=== PATIENT | male | born 1965 | race Caucasian/White ===

== ENCOUNTER → 2019-09-27 10:51 | Outpatient (CLI) | payer BC, SELFPAY ==
--- NOTE | ~2019-09-27 | CT_ITS ---
EXAMINATION: CT abdomen pelvis w con INDICATION: Left lower quadrant pain TECHNIQUE: Computed tomographic images of the abdomen and pelvis were obtained after the administrati on of 100 cc of Omnipaque 350 intravenous contrast. The dose-length product (DLP) was 1088.48 mGy-cm. Automated exposure control and iterative reconstruction technique were employed. COMPARISON: None available FINDINGS: The lung bases are clear. The heart size is normal. Low-attenuation lesions of the right he patic lobe measuring up to 1.3 cm are consistent with cysts or hemangiomas. The spleen, pancreas, gal lbladder, and adrenal glands are normal. The kidneys are unremarkable. There is calcified atheroscler osis of the aorta. No pathologically enlarged abdominal or pelvic lymph nodes are identified. There i s no free intraperitoneal gas or evidence of bowel obstruction. The appendix is normal. There are frederic ateral L5 pars defects with grade 1 anterolisthesis of L5 on S1. IMPRESSION: 1. No CT correlate for the patient's symptoms. Reviewed, dictated and finalized at location B.
[2019-09-27 11:13] LABS: Estimated Glomerular Filt Rate > 60
== END ==
PROVIDERS: Visit Provider Family Medicine
DX: R10.32 Left lower quadrant pain (principal)
CPT/HCPCS: 36415; 74177; Q9967

== ENCOUNTER 2020-12-25 03:58 | Day surgery (SDC) | payer BC, SELFPAY ==
[2020-12-07 13:51] VITALS: BMI 34.3
[2020-12-25 09:45] VITALS: BP 140/92; PULSE 75; RESP 20; TEMP 36.7; O2SAT 97; BMI 33.5
[2020-12-25] MEDS: LACTATED RINGERS 1,000 ML 150 ML IV CONT (09:57)
--- NOTE | 2020-12-25 09:59 | P.CONGI_ITS ---
Assessment and Plan Assessment and plan (1) Change in bowel habit: Code(s): R19.4 - Change in bowel habit Status: Acute Assessment and Plan: Patient reports an alteration in his bowel habits with narrowed ribbon like stools. Plan is for colonoscopy to evaluate more thoroughly. Fiber in his diet is suggested as this may represent irritable bowel syndrome. Endoscopy will help exclude any organic disease. GI Consult Note Consult date/time: 12/25/20 09:59 HPI: Joe Lee Jr. is a 55 year old male Presents for screening colonoscopy. Patient had a several year history of narrowed ribbon like stools. Denies abdominal pain. He has had no bleeding. Colonoscopy several years ago was unremarkable. He presents today for evaluation because of change in bowel habits with narrowed stools. Review of Systems Review of Systems: All systems reviewed & are unremarkable except as noted in HPI and below PMFSH Past Medical History Medical History (Updated 12/25/20 @ 10:00 by Tano Leahy MD) Anxiety Diastolic dysfunction Dyslipidemia CORY (obstructive sleep apnea) Family History Family History (System 07/28/20 @ 11:20 by Karsten Haines) Mother Family history of malignant neoplasm of breast in first degr ee relative, Onset Age: 50 Father , aneurysm Aneurysm Mother Breast cancer Social History Social History (System 07/28/20 @ 11:20 by Karsten Haines) Smoking status: Never smoker Alcohol intake: never Substance use: never Substance use type: does not use Living arrangements: with family Spiritual care concerns: No Meds Home Medications and Allergies Home Medications Medication Instructions Recorded Confirmed Type diltiazem HCl 120 mg 120 mg PO DAILY 05/28/19 12/07/20 History capsule,extended release 24 hr telmisartan 40 1 tablet PO DAILY 05/28/19 12/07/20 History mg-hydrochlorothiazide 12.5 mg tablet diclofenac sodium 75 mg PO DAILY 12/07/20 12/07/20 History Allergies Allergy/AdvReac Type Severity Reaction Status Date / Time No Known Allergies Allergy Verified 12/25/20 09:44 Vital Signs Vital Signs - 24 hr 12/25/20 09:45 Temperature 98.0 F Pulse Rate 75 Respiratory Rate 20 Blood Pressure 140/92 H Pulse Oximetry 97 Exam Narrative: Physical exam reveals patient be alert. Vital signs stable. HEENT exam is unremarkable. Patient is anicteric. Lungs are clear to auscultation and percussion. Heart is without murmur or extra sounds. Abdominal exam bowel sounds are present soft nontender with no organomegaly. Digital external rectal exam is normal.
--- NOTE | 2020-12-25 10:25 | WPDANESEPPF ---
Anes - Initial Pre Proc Eval Procedure: Operation Date: 12/25/20 10:45 Proposed Procedures p Colonoscopy - Tano Leahy MD Date/Time: 12/25/20 10:25 Surgeon: Tano Leahy MD Pre Op Diagnosis: change in bowel habits Patient Data Age: 55 Gender: M Height: 1.8 m Weight: 109.1 kg Last Vital Signs Temp 36.7 C 12/25/20 09:45 Pulse 75 12/25/20 09:45 Resp 20 12/25/20 09:45 BP 140/92 H 12/25/20 09:45 Pulse Ox 97 12/25/20 09:45 Allergies Allergy/AdvReac Type Severity Reaction Status Date / Time No Known Allergies Allergy Verified 12/25/20 09:44 Home Medications Medication Instructions Recorded Confirmed Type diltiazem HCl 120 mg 120 mg PO DAILY 05/28/19 12/07/20 History capsule,extended release 24 hr telmisartan 40 1 tablet PO DAILY 05/28/19 12/07/20 History mg-hydrochlorothiazide 12.5 mg tablet diclofenac sodium 75 mg PO DAILY 12/07/20 12/07/20 History Patient hx anesthesia problems: none Family hx anesthesia problems: none Results Review: All pre-operative results and documents have been reviewed as part of the pre-operative evaluation. [facility] Past Medical History Medical History Anxiety Diastolic dysfunction Dyslipidemia CORY (obstructive sleep apnea) Family History Family History Mother Family history of malignant neoplasm of breast in first degree relative, Onset Age: 50 Father , aneurysm Aneurysm Mother Breast cancer Social History Social History Smoking status: Never smoker Alcohol intake: never Substance use: never Substance use type: does not use Living arrangements: with family Spiritual care concerns: No Anes - Eval Final PreProcedure Day of Procedure 12/25/20 10:25 Patient weight: obese Heart: regular rate and rhythm Lungs: clear to auscultation Airway: Mallampati scale class II Neurological: alert and oriented Last oral intake: >/= 8 hours ASA classification: III Emergent: no Anesthetic plan: proceed Anesthesia type and monitoring: general GIVS and standard monitoring Results Review: All pre-operative results and documents have been reviewed as part of the pre-operative evaluation. Informed Consent: The patient's anesthetic plan and its attendant risks and benefits were discussed with the patient/family/POA. Questions were solicited and answers provided to the satisfaction of the patient/family/POA.
[2020-12-25 10:50] VITALS: BP 124/71; PULSE 80; RESP 20; O2SAT 97
[2020-12-25 11:00] VITALS: BP 128/85; PULSE 76; RESP 16; O2SAT 98
[2020-12-25 11:10] VITALS: BP 132/90; PULSE 68; RESP 18; O2SAT 99
== END 2020-12-25 11:22 | disposition home or self-care (01) ==
PROVIDERS: PCP Family Medicine; Visit Provider Internal Medicine Gastroenterology
PROC: 0DJD8ZZ Inspection of Lower Intestinal Tract, Via Natural or Artificial Opening Endoscopic (ICD-10-PCS; CPT 45378; principal; 2020-12-25 10:45)
DX: R19.4 Change in bowel habit (principal); K64.8 Other hemorrhoids; K57.30 Diverticulosis of large intestine without perforation or abscess without bleeding; F41.9 Anxiety disorder, unspecified; G47.33 Obstructive sleep apnea (adult) (pediatric); E78.5 Hyperlipidemia, unspecified; I50.30 Unspecified diastolic (congestive) heart failure; E66.9 Obesity, unspecified; Z68.33 Body mass index [BMI] 33.0-33.9, adult
CPT/HCPCS: 45378; J2704; J7120

== ENCOUNTER → 2023-03-29 13:28 | Outpatient (CLI) | payer BC, SELFPAY ==
--- NOTE | ~2023-03-29 | CT_ITS ---
EXAMINATION: CT abdomen pelvis wo/w con DATE: 03/29/2023 14:06 INDICATION: Left abdominal pain. TECHNIQUE: Computed tomography (CT) of the abdomen and pelvis was performed without and with 100 mL O mnipaque 350 intravenous contrast. Automated exposure control and iterative reconstruction technique were employed. The dose-length product was 1902.83 mGy-cm. COMPARISON: CT abdomen and pelvis 09/27/2019 FINDINGS: The visualized portions of the lung bases are clear without pneumonia or pleural effusion. The heart size is normal. No pericardial effusion. There is diffuse hepatic steatosis. There are cyst s in the liver measuring up to 14 mm. The gallbladder, spleen, pancreas, and adrenal glands are lv l. There are 2 stones in the right kidney with the larger measuring 5 mm. There are 2 stones in the l eft kidney with the larger measuring 3 mm. There is prominent fat in the inguinal canals that may be hernias. There is diverticulosis of the colon without evidence of diverticulitis. The appendix is nor mal. There are no dilated loops of bowel. There are no pathologically enlarged lymph nodes. There is no free intraperitoneal fluid. There is severe lower lumbar spondylosis. There are chronic bilateral L5 pars defects. There is mild chronic height loss of multiple thoracic vertebral bodies. IMPRESSION: 1. Diffuse hepatic steatosis. 2. Bilateral nonobstructing kidney stones. Reviewed, dictated and finalized at location E. [employer]
[2023-03-29 13:54] LABS: Estimated Glomerular Filt Rate > 60
== END ==
PROVIDERS: PCP Family Medicine; Visit Provider Family Medicine
DX: N20.0 Calculus of kidney (principal); K76.0 Fatty (change of) liver, not elsewhere classified; K59.00 Constipation, unspecified; R80.9 Proteinuria, unspecified; L57.0 Actinic keratosis; Z87.442 Personal history of urinary calculi
CPT/HCPCS: 74178; Q9967

== ENCOUNTER 2023-05-08 12:24 | Outpatient (CLI) | payer BC, SELFPAY ==
--- NOTE | ~2023-05-08 | MR_ITS ---
EXAMINATION: MR thoracic spine wo con DATE: 05/08/2023 12:54 INDICATION: Abnormal CT of the thoracic spine TECHNIQUE: Magnetic resonance imaging (MRI) of the thoracic spine was performed without intravenous c ontrast. Sagittal localizer T1-weighted FSE of the cervicothoracic spine was obtained. Thoracic spine sequences included sagittal T2-weighted FSE, sagittal T1-weighted SE, Sagittal T2-weighted FS FSE, a nd axial T2-weighted FSE. COMPARISON: CT abdomen pelvis dated 03/29/2023 FINDINGS: Alignment is normal.Chronic mild anterior wedging atT8 and T11 and chronic minimal anterior wedging a t T5 and T12. There are also Schmorl's nodes at multiple endplates from the superior endplate of T6th rough the inferior endplate of T12. Moderate disc height loss atT8-T9, T10-T11, T11-T12 and T12-L1. M ild disc height loss at T3-T4 through T7-T8 and at T9-T10.There is mild anterior fibrofatty degenerat imani endplate changes at a few levels in the lower thoracic spine. Small T1 and T2 hyperintense denice ioma at T12. There is normal spinal cord signal. The conus terminates at L1. Annular fissure and smal l left paracentral disc protrusion at T6-T7 with minimal central canal stenosis. There is also minima l central canal stenosis related to small disc bulges at T8-T9 and T11-T12. There is mild multilevel thoracic facet osteoarthritis. No thoracic neural foraminal stenosis. A couple T2 hyperintense likely hepatic cysts the larger measuring 1.8 cm. Paravertebral soft tissues are otherwise unremarkable. IMPRESSION: 1. Moderate thoracic spondylosis with chronic minimal to mild anterior wedging of a few mid to lower thoracic vertebral bodies. Reviewed, dictated and finalized at location A.
== END 2023-05-08 12:25 ==
LOC: MICIMG 12:25
PROVIDERS: PCP Family Medicine; Visit Provider Family Medicine
DX: R10.12 Left upper quadrant pain (principal); G57.11 Meralgia paresthetica, right lower limb; R93.7 Abnormal findings on diagnostic imaging of other parts of musculoskeletal system; M47.894 Other spondylosis, thoracic region
CPT/HCPCS: 72146

== ENCOUNTER 2024-06-27 01:05 | Day surgery (SDC) | payer BC, SELFPAY ==
[2024-06-12 14:07] VITALS: BMI 35.6
--- OUTSIDE RECORDS SUMMARY | 2024-06-27 01:07 | XMS_ITS | Patient Health Record ---
Author Organization [facility] dicine Address [address] [place] [address] Care Team Providers Care Valve Inspector Name Role Phone Dr. Trena Cardona Primary Care Provider [phone] Julián Magdaleno Unavailable [phone] Suni Tavarez Unavailable [phone] Trena Lundberg Unavailable [phone] Migration, Provider Unavailable Unavailable Allergies Allergen (clinical drug ingredient) Drug/Non Drug Allergy documented on EMR Reaction Allergy Type Onset Date Status amlodipine amLODIPine Besylate shortness of breath Drug Allergy Active fluticasone Fluticasone Flushing and light headed Drug Allergy 11/01/2022 Active Results Component Value Reference Range Notes Uric Acid Reviewed date:01/12/2024 12:00:00 AM Interpretation: Performing Lab: Notes/Report: Uric Acid 5.7 mg/dL Basic Metabolic Panel Reviewed date:01/12/2024 12:00:00 AM Interpretation: Performing Lab: Notes/Report: ANION GAP 7.7 mmol/L BUN 16 mg/dL Calcium Lvl 9.5 mg/dL Chloride Lvl 105 mmol/L CO2 29 mmol/L Creatinine Lvl 0.89 mg/dL eGFR CKD-EPI >90 mL/min/1.73 m2 Glucose Lvl 131 mg/dL Potassium Lvl 3.9 mmol/L Sodium Lvl 142 mmol/L IH COVID ALERE Reviewed date:11/02/2023 12:00:00 AM Interpretation: Performing Lab: Notes/Report: COVID negative Reason For Referral Reason Ongoing abdominal pa in, constipation, and MRI showed intermittent thickening of small bowel. Please refer to Dr. Flores at [place] Diagnosis 1 Left upper quadrant abdominal pain (R10.12) Diagnosis 2 Thickened small tate l (K63.9) Diagnosis 3 Chronic constipation (K59.09) Referral Organization [facility] Medicine Referring Provider First Name Suni Referring Provider Last Name Jmhayder Referring Provider Speciality Nurse Prac titioner Referred Provider Specialty Gastroentero logy General Notes Cecille Atkins 0 03/28/2024 02:28:43 PM [employer] >Faxed referral to Dr. Ewing [phone], Medina Atkinsica 04/17/2024 02:11:12 PM [employer] >Pt called stating that he hadn't heard from [facility] and when he called them they didn't have referral. Referral refaxedJanet Kaitlin 05/14/2024 01:10:06 PM CDT >please check on status of referral Referral Priority Routine Medications Medication SIG (Take, Route, Frequency, Duration) Notes Start Date End Date Status Naproxen 500 MG TAKE 1 TABLET BY MOUTH TWICE A DAY Oral twice a day; Duration: 60 days Active Melatonin oral; Duration: 0 *Pick strength-form from [employer] for eRX* 11/25/2020 Unknown Doxepin HCl 10 MG 1 capsule at bedtime Orally Once a day; Duration: 30 days Active Telmisartan 80 MG TAKE 1 TABLET BY MOUTH EVERY DAY; Duration: 90 Active Tamsulosin HCl 0.4 MG TAKE 1 CAPSULE BY MOUTH EVERY DAY; Duration: 90 Active Fish Oil oral; Duration: 0 *Pick strength-form from [employer] for eRX* 05/13/2021 Active Vitamin B12 1000 MCG 1 tablet Orally Once a day Active Immunizations Vaccine Route Administration Date Status Comme nts Tdap Unknown 11/09/2021 Administered ,sourcename : Historical information -from public agency Source VFC Code: : Jeet Covid-19 Vaccine Unknown 03/24/2020 Administered ,sourcename : Historical information -from other registry Source VFC Code: : Social History Social History Additional Details Category Social Info Options Details Migrated Social History Migrated Social History Alcohol history:Never drinks alcohol , Tobacco history:Never smoker , Marital status: , Employment:Currently employed ,notes : [employer] Problems Problem Type SNOMED Code ICD Code Onset Dates Problem Status W/U Status Risk Notes Problem Vitamin D deficiency (64059095) Vitamin D deficiency, unspecified (E55.9) 07/13/19 24 Active confirmed Problem Mixed hyperlipidemia (806743427) Mixed hyperlipidemia (E78.2) 10/08/19 23 Active confirmed Problem Hyperlipidemia (90015028) Hyperlipidemia, unspecified (E78.5) 04/09/19 22 Active confirmed Problem Hyperuricemia without signs of inflammatory arthritis and tophaceous disease (217464193) Hyperuricemia without signs of inflammatory arthritis and tophaceous disease (E79.0) 12/28/19 24 Active confirmed Problem Insomnia (305583191) Insomnia, unspecified (G47.00) 12/28/19 24 Active confirmed Problem Sleep apnea (77740548) Sleep apnea, unspecified (G47.30) 12/29/19 24 Active confirmed Problem Lesion of ulnar nerve (659390500) Lesion of ulnar nerve, right upper limb (G56.21) 10/23/19 21 Active confirmed Problem Meralgia paresthetica (83976307) Meralgia paresthetica, right lower limb (G57.11) 11/10/19 24 Active confirmed Problem Impacted cerumen (23955468) Impacted cerumen, right ear (H61.21) 09/12/19 22 Problem resolved confirmed Problem Essential hypertension (59854065) Essential (primary) hypertension (I10) 01/15/20 24 Active confirmed Problem Carotid artery occlusion (187993964) Occlusion and stenosis of unspecified carotid artery (I65.29) 11/20/19 21 Active confirmed Problem Acute sinusitis (19522542) Acute sinusitis, unspecified (J01.90) 11/02/19 24 Problem resolved confirmed Problem Acute pharyngitis (975518779) Acute pharyngitis, unspecified (J02.9) 09/12/19 22 Problem resolved confirmed Problem Acute upper respiratory infection (95447762) Acute upper respiratory infection, unspecified (J06.9) 11/02/19 24 Problem resolved confirmed Problem Chronic sinusitis (06802954) Chronic sinusitis, unspecified (J32.9) 03/13/19 24 Problem resolved confirmed Problem Disorder of nasal sinus (disorder) (6869339) Other specified disorders of nose and nasal sinuses (J34.89) 09/17/19 22 Problem resolved confirmed Problem Hernia of anterior abdominal wall (disorder) (353833780) Ventral hernia without obstruction or gangrene (K43.9) 12/28/19 24 Active confirmed Problem Constipation (03415152) Constipation, unspecified (K59.00) 11/13/19 24 Active confirmed Problem Fatty liver (503410369) Fatty (change of) liver, not elsewhere classified (K76.0) 04/05/19 24 Active confirmed Problem Actinic keratosis (392948) Actinic keratosis (L57.0) 10/05/19 23 Problem resolved confirmed Problem Epidermal cyst (481619767) Epidermal cyst (L72.0) 05/14/19 22 Problem resolved confirmed Problem Vitiligo (02944123) Vitiligo (L80) 11/10/19 24 Problem resolved confirmed Problem Primary osteoarthritis (153406005) Unilateral primary osteoarthritis, right knee (M17.11) 10/01/19 Problem resolved confirmed Problem Pain of right knee region (finding) (687545535286391) Pain in right knee (M25.561) 11/05/19 Problem resolved confirmed Problem Lumbosacral spondylosis without myelopathy (04783813) Spondylosis without myelopathy or radiculopathy, lumbar region (M47.816) 04/05/19 24 Active confirmed Problem Spinal stenosis (60470789) Spinal stenosis, site unspecified (M48.00) 05/12/19 24 Active confirmed Problem Spinal stenosis in cervical region (16012638) Spinal stenosis, cervical region (M48.02) 11/13/19 24 Active confirmed Problem Degeneration of lumbar intervertebral disc (14847846) Other intervertebral disc degeneration, lumbar region (M51.36) 05/12/19 24 Active confirmed Problem Cervicalgia (17872315) Cervicalgia (M54.2) 10/24/19 21 Active confirmed Problem Left side sciatica (961961193258392) Sciatica, left side (M54.32) 10/24/19 21 Problem resolved confirmed Problem Low back pain (920475110) Low back pain (M54.5) 11/10/19 24 Problem resolved confirmed Problem Backache (553444244) Dorsalgia, unspecified (M54.9) 04/18/19 24 Active confirmed Problem Medial epicondylitis of right elbow (208659163080064) Medial epicondylitis, right elbow (M77.01) 11/10/19 24 Problem resolved confirmed Problem Calculus of kidney (85518196) Calculus of kidney (N20.0) 04/05/19 24 Active confirmed Problem Prostatitis (7842365) Inflammatory disease of prostate, unspecified (N41.9) 04/24/19 22 Problem resolved confirmed Problem Nasal congestion (54471845) Nasal congestion (R09.81) 02/02/20 Problem resolved confirmed Problem Left upper quadrant pain (420421306) Left upper quadrant pain (R10.12) 12/18/19 Active confirmed Problem Left lower quadrant pain (661120394) Left lower quadrant pain (R10.32) 12/18/19 24 Active confirmed Problem Abdominal pain (17608885) Unspecified abdominal pain (R10.9) 11/13/19 24 Active confirmed Problem Change in bowel habit (28913673) Change in bowel habit (R19.4) 10/24/19 21 Problem resolved confirmed Problem Abnormal feces (201448341) Other fecal abnormalities (R19.5) 11/05/19 Problem resolved confirmed Problem Flushing (62192441) Flushing (R23.2) 11/10/19 24 Problem resolved confirmed Problem Hematuria (18055434) Hematuria, unspecified (R31.9) 11/13/19 24 Active confirmed Problem Urgent desire to urinate (13257649) Urgency of urination (R39.15) 04/24/19 22 Problem resolved confirmed Problem Fever (845103148) Fever, unspeci fied (R50.9) 11/02/19 23 Problem resolved confirmed Problem Pain (15577213) Pain, unspecifie d (R52) 10/08/19 23 Problem resolved confirmed Problem Fatigue (00895457) Other fatigue (R53.83) 10/05/19 23 Problem resolved confirmed Problem Chill (92498097) Chills (without fever) (R68.83) 11/02/19 23 Problem resolved confirmed Problem Hyperglycemia (39186055) Hyperglycemia, unspecified (R73.9) 04/24/19 Active confirmed Problem Laboratory test result abnormal (796111567) Abnormal levels of other serum enzymes (R74.8) 05/14/19 22 Problem resolved confirmed Problem Proteinuria (69603375) Proteinuria, unspecified (R80.9) 03/22/19 24 Problem resolved confirmed Problem Radiology result abnormal (370651071) Abnormal findings on diagnostic imaging of other parts of musculoskeletal system (R93.7) 03/31/19 24 Active confirmed Problem Superficial foreign body (374024905) Superficial foreign body of abdominal wall, initial encounter (S30.851A) 12/18/19 24 Active confirmed Problem Strain of muscle , fascia and tendon of abdomen, initial encounter (S39.011A) 10/24/19 21 Problem resolved confirmed Problem Sprain of right knee (0770897580574146 1) Sprain of other specified parts of right knee, initial encounter (S83.8X1A) 10/01/19 22 Problem resolved confirmed Problem Toxic effect of venom (97335907) Toxic effect of venom of other arthropod, accidental (unintentional), initial encounter (T63.481A) 10/08/19 23 Problem resolved confirmed Problem Adult health examination (238185221) Encounter for general adult medical examination without abnormal findings (Z00.00) 11/05/19 22 Problem resolved confirmed Problem Screening for malignant neoplasm of prostate (590765480) Encounter for screening for malignant neoplasm of prostate (Z12.5) 11/05/19 22 Problem resolved confirmed Problem Exposure to communicable disease (515602137) Contact with and (suspected) exposure to other viral communicable diseases (Z20.828) 11/05/19 22 Problem resolved confirmed Problem History of urinary stone (058547190) Personal history of urinary calculi (Z87.442) 03/22/19 24 Problem resolved confirmed Problem COVID-19 (382144561) COVID-19 (U07.1) 01/29/20 23 Problem resolved confirmed Problem Headache (40335597) Headache, unspecified (R51.9) 01/29/20 23 Problem resolved confirmed Problem Suspected disease caused by Severe acute respiratory coronavirus 2 (situation) (179941146) Encounter for screening for COVID-19 (Z11.52) 11/02/19 23 Problem resolved confirmed Problem Body mass index 30.00 to 34.99 (782808342493550) Body mass index (BMI) 33.0-33.9, adult (Z68.33) 10/08/19 23 Problem resolved confirmed Problem Body mass index 30.00 to 34.99 (762072462181830) Body mass index (BMI) 34.0-34.9, adult (Z68.34) 10/05/19 Problem resolved confirmed Vital Signs Heart Rate 98 /min 04/26/2024 Temperature 97.9 degrees Fahrenheit 04/26/2024 Respiratory Rate 14 /min 03/28/2024 Height-cm 180.34 cm 04/26/2024 Blood pressure diastolic 98 mm Hg 04/26/2024 Oximetry 97 % 04/26/2024 Weight-kg 114.76 kg 04/26/2024 Height 71.00 in 04/26/2024 Blood pressure systolic 152 mm Hg 04/26/2024 Weight 253 lbs 04/26/2024 BMI 35.28 kg/m2 04/26/2024 Procedures Procedure Date Ordered Date Performed Result Body Sit e Colonoscopy 03/28/2024 01/04/2021 N/A Encounters Encounter Location Date Provider Diagnosis [address] [address] 07/13/2023 Provider Migration Essential (primary) hypertension I10 ; Hyperglycemia, unspecified R73.9 ; Hyperlipidemia, unspecified E78.5 and Vitamin D deficiency, unspecified E55.[address] [address] 11/02/2023 Dr. Trena Cardona Acute sinusitis, unspecified J01.90 and Acute upper respiratory infection, unspecified J06.[address] [address] 11/13/2023 Dr. Trena Cardona Flushing R23.2 ; Acu te sinusitis, unspecified J01.90 ; Other fatigue R53.83 ; Hyperglycemia, unspecified R73.9 ; Constipation, unspecified K59.00 ; Hematuria, unspecified R31.9 ; Chronic sinusitis, unspecified J32.9 ; Pain, unspecified R52 ; Spinal stenosis, site unspecified M48.00 ; Body mass index (BMI) 34.0-34.9, adult Z68.34 ; Essential (primary) hypertension I10 ; Chills (without fever) R68.83 ; Spinal stenosis, cervical region M48.02 ; COVID-19 U07.1 ; Left upper quadrant pain R10.12 ; Calculus of kidney N20.0 ; Mixed hyperlipidemia E78.2 ; Sleep apnea, unspecified G47.30 ; Personal history of urinary calculi Z87.442 ; Other intervertebral disc degeneration, lumbar region M51.36 ; Acute upper respiratory infection, unspecified J06.9 ; Meralgia paresthetica, right lower limb G57.11 ; Spondylosis without myelopathy or radiculopathy, lumbar region M47.816 ; Low back pain M54.5 ; Headache, unspecified R51.9 ; Toxic effect of venom of other arthropod, accidental (unintentional), initial encounter T63.481A ; Vitamin D deficiency, unspecified E55.9 ; Dorsalgia, unspecified M54.9 ; Unspecified abdominal pain R10.9 ; Unilateral primary osteoarthritis, right knee M17.11 ; Encounter for screening for COVID-19 Z11.52 ; Fever, unspecified R50.9 ; Body mass index (BMI) 33.0-33.9, adult Z68.33 ; Medial epicondylitis, right elbow M77.01 ; Sprain of other specified parts of right knee, initial encounter S83.8X1A ; Vitiligo L80 ; Fatty (change of) liver, not elsewhere classified K76.0 ; Actinic keratosis L57.0 and Proteinuria, unspecified R80.[address] 11/21/2023 Provider Migration Spinal stenosis, cervical region M48.02 and Cervicalgia M54.2 [place] [address] 11/23/2023 Provider Migration Unspecified abdomina l pain R10.9 and Constipation, unspecified K59.00 [place] [id number] 12/18/2023 Provider Migration Superficial foreign body of abdominal wall, initial encounter S30.851A ; Left lower quadrant pain R10.32 and Left upper quadrant pain R10.12 [place] [phone] 12/28/2023 Dr. Trena Cardona Cervicalgia M54.2 ; Sleep apnea, unspecified G47.30 ; Ventral hernia without obstruction or gangrene K43.9 ; Superficial foreign body of abdominal wall, initial encounter S30.851A ; Spinal stenosis, cervical region M48.02 ; Essential (primary) hypertension I10 ; Insomnia, unspecified G47.00 ; Hyperuricemia without signs of inflammatory arthritis and tophaceous disease E79.0 and Constipation, unspecified K59.[address] [address] 01/15/2024 Provider Migration Essential (primary) hypertension I10 [address] [address] 02/19/2024 Trena Lundberg Essential (primary) hypertension I10 and Difficulty urinating R39.[address] [address] 03/28/2024 Suni Tavarez Left upper quadrant abdominal pain R10.12 ; Thickened small bowel K63.9 ; Chronic constipation K59.09 and Spondylosis without myelopathy or radiculopathy, lumbar region M47.[address] [address] 04/26/2024 Julián Magdaleno Iron excess E83.19 ; Lesion of liver K76.9 and Abnormal serum iron level R79.[address] [address] 01/20/2024 Provider Migration [address] [address] 01/21/2024 Provider Migration [address] [address] 02/15/2024 Dr. Trena Cardona [address] [address] 03/20/2024 Dr. Trena Cardona Spinal stenosis, cervical region M48.02 and Cervicalgia M54.[address] [address] 05/15/2024 Julián Magdaleno Assessments Encounter Date Diagnosis (ICD Code) Assessment Notes Treatment Notes Treatment Clinical Notes Section Notes 07/13/2023 Vitamin D deficiency, unspecified (ICD-10 - E55.9) 07/13/2023 Hyperlipidemia, unspecified (ICD-10 - E78.5) 07/13/2023 Essential (primary) hypertension (ICD-10 - I10) 07/13/2023 Hyperglycemia, unspecified (ICD-10 - R73.9) 11/02/2023 Acute sinusitis, unspecified (ICD-10 - J01.90) 11/02/2023 Acute upper respiratory infection, unspecified (ICD-10 - J06.9) 11/13/2023 Vitamin D deficiency, unspecified (ICD-10 - E55.9) 11/13/2023 Mixed hyperlipidemia (ICD-10 - E78.2) 11/13/2023 Sleep apnea, unspecified (ICD-10 - G47.30) 11/13/2023 Meralgia paresthetica, right lower limb (ICD-10 - G57.11) 11/13/2023 Essential (primary) hypertension (ICD-10 - I10) 11/13/2023 Acute sinusitis, unspecified (ICD-10 - J01.90) 11/13/2023 Acute upper respiratory infection, unspecified (ICD-10 - J06.9) 11/13/2023 Chronic sinusitis, unspecified (ICD-10 - J32.9) 11/13/2023 Constipation, unspecified (ICD-10 - K59.00) 11/13/2023 Fatty (change of) liver, not elsewhere classified (ICD-10 - K76.0) 11/13/2023 Actinic keratosis (ICD-10 - L57.0) 11/13/2023 Vitiligo (ICD-10 - L80) 11/13/2023 Unilateral primary osteoarthritis, right knee (ICD-10 - M17.11) 11/13/2023 Spondylosis without myelopathy or radiculopathy, lumbar region (ICD-10 - M47.816) 11/13/2023 Spinal stenosis, site unspecified (ICD-10 - M48.00) 11/13/2023 Spinal stenosis, cervical region (ICD-10 - M48.02) 11/13/2023 Other intervertebral disc degeneration, lumbar region (ICD-10 - M51.36) 11/13/2023 Low back pain (ICD-10 - M54.5) 11/13/2023 Dorsalgia, unspecified (ICD-10 - M54.9) 11/13/2023 Medial epicondylitis, right elbow (ICD-10 - M77.01) 11/13/2023 Calculus of kidney (ICD-10 - N20.0) 11/13/2023 Left upper quadrant pain (ICD-10 - R10.12) 11/13/2023 Unspecified abdominal pain (ICD-10 - R10.9) 11/13/2023 Flushing (ICD-10 - R23.2) 11/13/2023 Hematuria, unspecified (ICD-10 - R31.9) 11/13/2023 Fever, unspecified (ICD-10 - R50.9) 11/13/2023 Pain, unspecified (ICD-10 - R52) 11/13/2023 Other fatigue (ICD-10 - R53.83) 11/13/2023 Chills (without fever) (ICD-10 - R68.83) 11/13/2023 Hyperglycemia, unspecified (ICD-10 - R73.9) 11/13/2023 Proteinuria, unspecified (ICD-10 - R80.9) 11/13/2023 Sprain of other specified parts of right knee, initial encounter (ICD-10 - S83.8X1A) 11/13/2023 Toxic effect of venom of other arthropod, accidental (unintentional), initial encounter (ICD-10 - T63.481A) 11/13/2023 Personal history of urinary calculi (ICD-10 - Z87.442) 11/13/2023 COVID-19 (ICD-10 - U07.1) 11/13/2023 Headache, unspecified (ICD-10 - R51.9) 11/13/2023 Encounter for screening for COVID-19 (ICD-10 - Z11.52) 11/13/2023 Body mass index (BMI) 33.0-33.9, adult (ICD-10 - Z68.33) 11/13/2023 Body mass index (BMI) 34.0-34.9, adult (ICD-10 - Z68.34) 11/21/2023 Spinal stenosis, cervical region (ICD-10 - M48.02) 11/21/2023 Cervicalgia (ICD-10 - M54.2) 11/23/2023 Constipation, unspecified (ICD-10 - K59.00) 11/23/2023 Unspecified abdominal pain (ICD-10 - R10.9) 12/18/2023 Left upper quadrant pain (ICD-10 - R10.12) 12/18/2023 Left lower quadrant pain (ICD-10 - R10.32) 12/18/2023 Superficial foreign body of abdominal wall, initial encounter (ICD-10 - S30.851A) 12/28/2023 Hyperuricemia without signs of inflammatory arthritis and tophaceous disease (ICD-10 - E79.0) 12/28/2023 Insomnia, unspecified (ICD-10 - G47.00) 12/28/2023 Sleep apnea, unspecified (ICD-10 - G47.30) 12/28/2023 Essential (primary) hypertension (ICD-10 - I10) 12/28/2023 Ventral hernia without obstruction or gangrene (ICD-10 - K43.9) 12/28/2023 Constipation, unspecified (ICD-10 - K59.00) 12/28/2023 Spinal stenosis, cervical region (ICD-10 - M48.02) 12/28/2023 Cervicalgia (ICD-10 - M54.2) 12/28/2023 Superficial foreign body of abdominal wall, initial encounter (ICD-10 - S30.851A) 01/15/2024 Essential (primary) hypertension (ICD-10 - I10) 02/19/2024 Essential (primary) hypertension (ICD-10 - I10) - Current blood pressure management with amlodipine is not effective, causing side effects such as headaches, flushing, and dizziness. - Will increase Telmisartan to 80 mg daily. - STOP taking Amlodipine. - Will also start on Flomax for urinary concerns plus aid in helping lower BP. 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 - Advised to check BP twice a day (morning and night) and document readings. - Patient to call back in 1 week with BP readings after making and starting new medication regimen. 02/19/2024 Difficulty urinating (ICD-10 - R39.198) - Will trial Flomax daily to help with making urination easier as well as helping lower BP. 03/20/2024 Spinal stenosis, cervical region (ICD-10 - M48.02) 03/28/2024 Left upper quadrant abdominal pain (ICD-10 - R10.12) 03/28/2024 Thickened small bowel (ICD-10 - K63.9) - Scattered thickening in the small bowel noted on MRI. Possible blood flow issue or recent infection.- Referral to GI for further evaluation. Consider small bowel follow-through or pill camera for further investigation. He has an appt with cardiology today, and he will discuss with cardiology regarding potential blood flow issues. 04/26/2024 Iron excess (ICD-10 - E83.19) 04/26/2024 Lesion of liver (ICD-10 - K76.9) Lesions on liver likely cystic but undetermined based on MRI, recommed reimaging with MRI post constrast and/or US. 04/26/2024 Abnormal serum iron level (ICD-10 - R79.0) Repeat iron level and further studies determine severity and source of iron overload. Obtaining iron studies, ferritin, CBC, peripheral smear, and retic count. No history of transfusions and denies family hx of hemochromatosis. Avoid diet with excess iron and supplements with iron. Recommend further imaging of liver, will obtain labs first. Consider genetic testing for hereditary hemochromatosis based on lab results. 03/28/2024 Chronic constipation (ICD-10 - K59.09) 03/20/2024 Cervicalgia (ICD-10 - M54.2) 03/28/2024 Spondylosis without myelopathy or radiculopathy, lumbar region (ICD-10 - M47.816) -Ongoing lower back pain - Risks and side effects: naproxen can be harmful over time, affecting the gut and kidneys. Plan Of Treatment Pending Test Test Name Order Date Iron and TIBC 04/26/2024 Ferritin, Serum 04/26/2024 CBC With Differential/Platelet MRI : Cervical without Contrast 03/20/19 Smear Review 04/26/2024 Retic Count Auto 04/26/2024 Insurance Providers Payer Name Payer Address Payer Phone Subscriber Number Group Number Insured Name Patient Relationship to Insured Coverage Start Date Coverage End Date [employer] [address] [place] [address] [id number] Joe Lee Self - patient is the insured [address] [place] [address] [address] [address] [place] [address] [id number] Joe Lee Self - patient is the insured 2 Medical (General) History Medical History History ICD Code Vitamin D deficiency, unspecified E55.9 Mixed hyperlipidemia E78.2 Hyperuricemia without signs of inflammat ory arthritis and tophaceous disease E79.0 Insomnia, unspecified G47.00 Sleep apnea, unspecified G47.30 Lesion of ulnar nerve, right upper limb G56.21 Meralgia paresthetica, right lower limb G57.11 Essential (primary) hypertension I10 Occlusion and stenosis of unspecified ca rotid artery I65.29 Ventral hernia without obstruction or ga ngrene K43.9 Constipation, unspecified K59.00 Fatty (change of) liver, not elsewhere c lassified K76.0 Spondylosis without myelopathy or radicu lopathy, lumbar region M47.816 Spinal stenosis, cervical region M48.02 Other intervertebral disc degeneration, lumbar region M51.36 Hyperglycemia, unspecified R73.9 Surgical History Surgery Date(Month/Year) Cardiovascular stress test u sing maximal or submaximal treadmill or bicycle exercise, continuous misael 09/23/2019
--- OUTSIDE RECORDS SUMMARY | 2024-06-27 01:07 | XMS_ITS | Encounter Summary ---
Author Organization [facility] Address [address] [place] [address] Care Team Providers Care Pharmacist Manager Name Role Phone Mitchell Keane MD Primary Care Provider [phone] Zaki Choudhary MD Unavailable [phone] Trena Cardona MD Primary Care Provider Encounter Details Date Type Department Care Team (Late st Contact Info) Description 10/23/2019 Abstract [facility] at [address] [address] Vince Castellanos MA Social History Tobacco Use Types Packs/Day Years Used Date Smoking Tobacco: Never Smokeless Tobacco: Never Alcohol Use Standard Drinks/Week Comments No 0 (1 standard drink = 0.6 oz pur e alcohol) AUDIT-C Answer Date Recorded Frequency of Alcohol Consumption Never 10/24/2018 Average Number of Drinks Not on file 019 Frequency of Binge Drinking Not on file 05/2018 Sex and Gender Information Value Date Recorded Sex Assigned at Male 03/07/2024 7:51 AM PHYSICIAN PRACTICE MARKET MANAGER Legal Sex Male 1:55 AM CDT Gender Identity Male 03/15/2021 11:14 AM PHYSICIAN PRACTICE MARKET MANAGER Sexual Orientation Straight 03/15/2021 11 :14 AM PHYSICIAN PRACTICE MARKET MANAGER 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 Unable to assess 10/17/2019 4:18 PM CDT documented as of this encounter Plan of Treatment Upcoming Encounters Date Type Department Care Team (Late st Contact Info) Description 09/26/2024 2:30 PM CDT Office Visit [facility] [address] [place] [phone] Farheen Turcios NP [address] [place] [address] documented as of this encounter Procedures Procedure Name Priority Date/Time Associated Diagnosis Comments HEMOGLOBIN, GLYCOSYLATED Routine 10/04/2022 COMPREHENSIVE METABOLIC PANEL Routine 10/04/2022 LIPID PANEL Routine 10/04/2022 CBC, MANUAL DIFF Routine 10/04/2022 THYROXINE, FREE (FT4) Routine 10/04/2022 THYROID STIM HORMONE TSH Routine 10/04/2022 BASIC METABOLIC PANEL Routine 12/09/2021 CBC (OUTSIDE LAB) Routine 04/09/2021 COMPREHENSIVE METABOLIC PANEL Routine 04/09/2021 LIPID PANEL Routine 04/09/2021 HEMOGLOBIN, GLYCOSYLATED Routine 04/09/2021 THYROXINE, FREE (FT4) Routine 04/09/2021 THYROID STIM HORMONE TSH Routine 04/09/2021 PROSTATE SPECIFIC ANTIGEN,TOTAL Routine 05/20/2020 COMPREHENSIVE METABOLIC PANEL Routine 05/20/2020 LIPID PANEL Routine 05/20/2020 THYROID STIM HORMONE TSH Routine 05/20/2020 CBC (OUTSIDE LAB) Routine 10/09/2019 PROSTATE SPECIFIC ANTIGEN,TOTAL Routine 10/09/2019 COMPREHENSIVE METABOLIC PANEL Routine 10/09/2019 LIPID PANEL Routine 10/09/2019 THYROXINE, FREE (FT4) Routine 10/09/2019 THYROID STIM HORMONE TSH Routine 10/09/2019 CBC (OUTSIDE LAB) Routine 05/02/2018 COMPREHENSIVE METABOLIC PANEL Routine 05/01/2018 LIPID PANEL Routine 05/01/2018 THYROID STIM HORMONE TSH Routine 05/01/2018 documented in this encounter Results * COMPREHENSIVE METABOLIC PANEL (10/04/2022) Pathologist [facility] SODIUM S/P/B 139 GLUCOSE 97 mg/dL AST 29 BUN 16 CREATININE S/P/B 0.77 0.7 - 1.3 CALCIUM S/P/B 9.7 POTASSIUM S/P/B 4.2 CHLORIDE S/P/B 99 ALT 41 GFR ESTIMATE 103 us Default History Genericprovider LABORATORY Final Result * LIPID PANEL (10/04/2022) Pathologist [facility] CHOLESTEROL 204 TRIGLYCERIDES 478 HDL 33 LDL (CALCULATED) 92 us Default History Genericprovider LABORATORY Final Result * CBC, MANUAL DIFF (10/04/2022) [facility] WBC 6.6 HGB 15.5 HCT 45.3 PLT 274 Default History Genericprovider LABORATORY Final Result * THYROXINE, FREE (FT4) (10/04/2022) Pathologist [facility] FREE T4 1.28 us Default History Genericprovider LABORATORY Final Result * HEMOGLOBIN, GLYCOSYLATED (10/04/2022) HGB A1C 5.4 % Result [facility] History Genericprovider LABORATORY Final Result * THYROID STIM HORMONE TSH (10/04/2022) TSH 2.390 Result [facility] History Genericprovider LABORATORY Final Result * (ABNORMAL) BASIC METABOLIC PANEL (12/09/2021) Pathologist [facility] SODIUM S/P/B 138 POTASSIUM S/P/B 4.5 CO2 25 CHLORIDE S/P/B 97 GLUCOSE 97 mg/dL CALCIUM S/P/B 9.7 BUN 15 CREATININE S/P/B 0.80 0.7 - 1.3 EGFR NON-AFR. AMER. 103(A) <=90 12/09/2021 Result [facility] Result * HEMOGLOBIN, GLYCOSYLATED (04/09/2021) Pathologist [facility] HGB A1C 5.5 % 04/09/2021 [facility] Abstract LABORATORY Final Result * THYROID STIM HORMONE, TSH (04/09/2021) Pathologist [facility] TSH 3.960 04/09/2021 [facility] Abstract LABORATORY Final Result * THYROXINE, FREE (FT4) (04/09/2021) FREE T4 1.20 04/09/2021 [facility] Abstract LABORATORY Final Result * LIPID PANEL (04/09/2021) Pathologist [facility] CHOLESTEROL 166 HDL 36 TRIGLYCERIDES 247 LDL (CALCULATED) 89 DIRECT LDL 91 04/09/2021 us Doc [facility] Abstract LABORATORY Final Result * (ABNORMAL) COMPREHENSIVE METABOLIC PANEL (04/09/2021) SODIUM S/P/B 143 POTASSIUM S/P/B 4.4 CO2 26 CHLORIDE S/P/B 102 GLUCOSE 102 mg/dL CALCIUM S/P/B 9.4 BUN 14 CREATININE S/P/B 0.85 0.7 - 1.3 EGFR AFR. AMER. 112(A) <=90 EGFR NON-AFR. AMER. 97(A) <=90 ALKALINE PHOSPHATASE S/P/B 71 ALT 50 AST 32 BILIRUBIN TOTAL S/P/B 0.6 ALBUMIN S/P/B 4.3 3.5 - 5.0 TOTAL PROTEIN S/P/B 6.8 GLOBULIN 2.5 04/09/2021 us Doc [facility] Abstract LABORATORY Final Result * CBC (OUTSIDE LAB) (04/09/2021) Pathologist [facility] WBC 6.5 HGB 15.7 HCT 45.2 PLT 269 04/09/2021 us Doc [facility] Abstract LAB-OUTSIDE/ABSTRACTED Final Result * THYROID STIM HORMONE, TSH (05/20/2020) Pathologist [facility] TSH 3.430 05/20/2020 us Doc [facility] Abstract LABORATORY Final Result * PROSTATE SPECIFIC ANTIGEN,TOTAL (05/20/2020) PSA 0.7 05/20/2020 us Doc [facility] Abstract LABORATORY Final Result * LIPID PANEL (05/20/2020) CHOLESTEROL 207 HDL 28 TRIGLYCERIDES 339 DIRECT LDL 125 05/20/2020 us Doc [facility] Abstract LABORATORY Final Result * COMPREHENSIVE METABOLIC PANEL (05/20/2020) [facility] SODIUM S/P/B 141 POTASSIUM S/P/B 4.1 CO2 34 CHLORIDE S/P/B 100 GLUCOSE 105 mg/dL CALCIUM S/P/B 9.4 BUN 12 CREATININE S/P/B 0.90 0.7 - 1.3 EGFR NON-AFR. AMER. >60 <=90 ALKALINE PHOSPHATASE S/P/B 77 ALT 59 AST 39 BILIRUBIN TOTAL S/P/B 0.8 ALBUMIN S/P/B 4.7 3.5 - 5.0 TOTAL PROTEIN S/P/B 8.0 05/20/2020 us Doc [facility] Abstract LABORATORY Final Result * PROSTATE SPECIFIC ANTIGEN,TOTAL (10/09/2019) [facility] PSA 0.6 10/09/2019 us Doc [facility] Abstract LABORATORY Final Result * THYROID STIM HORMONE, TSH (10/09/2019) [facility] TSH 2.840 0.450 - 4.500 10/09/2019 us Doc [facility] Abstract LABORATORY Final Result * THYROXINE, FREE (FT4) (10/09/2019) [facility] FREE T4 1.32 0.82 - 1.77 10/09/2019 us Doc [facility] Abstract LABORATORY Final Result * LIPID PANEL (10/09/2019) [facility] CHOLESTEROL 180 HDL 34 TRIGLYCERIDES 239 LDL (CALCULATED) 98 10/09/2019 us Doc [facility] Abstract LABORATORY Final Result * (ABNORMAL) COMPREHENSIVE METABOLIC PANEL (10/09/2019) SODIUM S/P/B 139 POTASSIUM S/P/B 4.2 CO2 27 CHLORIDE S/P/B 99 GLUCOSE 94 mg/dL CALCIUM S/P/B 9.2 BUN 17 CREATININE S/P/B 0.87 0.7 - 1.3 EGFR AFR. AMER. 112(A) <=90 EGFR NON-AFR. AMER. 96(A) <=90 ALKALINE PHOSPHATASE S/P/B 75 ALT 28 AST 22 BILIRUBIN TOTAL S/P/B 0.5 ALBUMIN S/P/B 4.3 3.5 - 5.0 TOTAL PROTEIN S/P/B 6.6 GLOBULIN 2.3 10/09/2019 us Doc [facility] Abstract LABORATORY Final Result * CBC (OUTSIDE LAB) (10/09/2019) Pathologist [facility] WBC 5.5 HGB 15.5 HCT 46.3 PLT 249 10/09/2019 us Doc [facility] Abstract LAB-OUTSIDE/ABSTRACTED Final Result * CBC (OUTSIDE LAB) (05/02/2018) Pathologist [facility] WBC 6.0 HGB 16.5 HCT 48.5 PLT 278 05/02/2018 us Doc [facility] Abstract LAB-OUTSIDE/ABSTRACTED Final Result * LIPID PANEL (05/01/2018) Pathologist [facility] CHOLESTEROL 194 HDL 33 TRIGLYCERIDES 238 LDL (CALCULATED) 130 05/01/2018 us Doc [facility] Abstract LABORATORY Final Result * COMPREHENSIVE METABOLIC PANEL (05/01/2018) Pathologist [facility] SODIUM S/P/B 137 POTASSIUM S/P/B 4.2 CO2 28 CHLORIDE S/P/B 97 GLUCOSE 93 mg/dL CALCIUM S/P/B 9.9 BUN 16 CREATININE S/P/B 0.80 0.7 - 1.3 EGFR NON-AFR. AMER. >60 <=90 ALKALINE PHOSPHATASE S/P/B 80 ALT 55 AST 33 BILIRUBIN TOTAL S/P/B 0.8 ALBUMIN S/P/B 4.8 3.5 - 5.0 TOTAL PROTEIN S/P/B 8.0 05/01/2018 us Doc [facility] Abstract LABORATORY Final Result * THYROID STIM HORMONE, TSH (05/01/2018) TSH 3.110 05/01/2018 us Doc [facility] Abstract LABORATORY Final Result documented in this encounter Visit Diagnoses Not on filedocumented in this encounter Care Teams Pharmacist Manager Relationship Specialty Start Date End Date Mitchell Keane MD [address] [place] [address] PCP - General FAMILY PRACTICE 05/10/18 09/29/21 Trena Cardona MD [address] [place] [address] PCP - General FAMILY PRACTICE 09/30/21 Zaki Choudhary MD [facility] [address] [place] [address] [facility] CARDIOVASCULAR DISEASE 04/12/19 documented as of this encounter
--- OUTSIDE RECORDS SUMMARY | 2024-06-27 01:07 | XMS_ITS | Clinical Summary ---
Author Organization [facility] [address] Address [address] [place] [address] Care Team Providers Care Manager Market Intelligence Name Role Phone Mitchell Keane MD Primary Care Provider [phone] Allergies No known active allergies Medications telmisartan (MICARDIS) 40 mg tablet Take 40 mg by mouth daily 5 06/03/2018 Active multivitamin capsule Take 1 capsule by mouth daily Active elderberry fruit-honey 0.7-3 gram/7.5 mL liquid Take by mouth Active cyanocobalamin 2,000 mcg tablet Take 2,000 mcg by mouth daily Active spironolactone (ALDACTONE) 25 mg tablet Take 1 tablet (25 mg total) by mouth daily 30 tablet 11 01/09/2019 Active VASCEPA 1 gram capsule TAKE 2 CAPSULES BY MOUTH TWICE A DAY 360 capsule 3 01/30/2019 Active DILTIAZEM CD 120 mg 24 hr capsule TAKE 1 CAPSULE BY MOUTH EVERY DAY 90 capsule 3 03/27/2019 Active Active Problems No known active problems Medical History Medical History Date Comments Hypertension Hypertension Family History Medical History Relation Name Comments Breast cancer Father Cancer, breast ; LM 05/11/2016 -father from breast cancer Breast cancer Mother Cancer, breast ; Cause of : Cancer, breast Other Other 2 Family history of aneurysm; Cause of : Family history of aneurysm Relation Name Status Comments Father (Age 83) Mother (Age 52) Other 1 Other 2 Social History Tobacco Use Types Packs/Day Years Used Date Smoking Tobacco: Never Smokeless Tobacco: Never Alcohol Use Standard Drinks/Week Comments No 0 (1 standard drink = 0.6 oz pur e alcohol) Sex and Gender Information Value Date Recorded Sex Assigned at Not on file Legal Sex Male 2:04 PM CDT Gender Identity Not on file Sexual Orientation Not on file Obstetrics History Last Filed Vital Signs Vital Sign Reading Time Taken Comments Blood Pressure 126/78 01/09/2019 1:11 PM BOILER RIVETER Pulse 83 01/09/2019 1:11 PM BOILER RIVETER Temperature - - Respiratory Rate - - Oxygen Saturation 97% 01/09/2019 1:11 PM BOILER RIVETER Inhaled Oxygen Concentration - - Weight 109.3 kg (241 lb) 01/09/2019 1:11 PM BOILER RIVETER Height 179.1 cm (5' 10.5 ) 01/09/2019 1:11 PM CS T Body Mass Index 34.09 01/09/2019 1:11 PM BOILER RIVETER Plan of Treatment Not on file Insurance [facility] Care Teams Manager Market Intelligence Relationship Specialty Start Date End Date Mitchell Keane MD [address] [place] [address] PCP - General 05/20/16
--- OUTSIDE RECORDS SUMMARY | 2024-06-27 01:07 | XMS_ITS | Clinical Summary ---
Author Organization [facility] Address [address] [place] [address] Care Team Providers Care Powder Coat Painter Name Role Phone Zaki Choudhary MD Unavailable [phone] Trena Cardona MD Primary Care Provider Allergies Active Allergy Reactions Criticality Noted Date Comments Amlodipine Other (see comment) 03/28/2024 Caused blood pressure to spike Lisinopril Cough 05/10/2018 Medications multi vitamin/mineral s (THERA-M ENHANCED) tablet Take 1 tablet by mouth daily. Active naproxen (NAPROSYN) 500 MG tablet Take 1 tablet (500 mg total) by mouth 2 (two) times daily. 4 Active Vitamin D3 (VITAMIN D) 50 mcg tablet Take 2 tablets (100 mcg total) by mouth daily. Active telmisartan (MICARDIS) 40 MG tablet take 1 tablet by mouth every day 90 tablet 2 4 Active tamsulosin (FLOMAX) 0.4 MG Cap Take 1 capsule (0.4 mg total) by mouth daily. 5 Active doxepin (SINEQUAN) 10 MG capsule Take 1 capsule (10 mg total) by mouth nightly as needed. 4 Active fish oil (OMEGA-3 FATTY ACID) 1000 MG Cap capsule Take 1 capsule (1,000 mg total) by mouth daily. Active Coenzyme Q10 (COQ10) 100 MG Cap Take by mouth daily. Active isosorbide mononitrate ER (IMDUR) 30 MG 24 hr tablet Take 0.5 tablets (15 mg total) by mouth daily. 45 tablet 3 5 Active nitroglycerin (NITROSTAT) 0.[address] 1 tablet (0.4 mg total) under the tongue every 5 (five) minutes as needed. Maximum of 3 doses. 30 tablet 3 5 026 Active rosuvastatin (CRESTOR) 10 MG tablet Take 1 tablet (10 mg total) by mouth nightly at bedtime. 90 tablet 3 5 Active hydroCHLOROthia zide (HYDRODIURIL) 25 MG tablet TAKE 1 TABLET BY MOUTH EVERY DAY IN THE MORNING 90 tablet 1 5 Active hydroCHLOROthia zide (HYDRODIURIL) 25 MG tablet TAKE 1 TABLET BY MOUTH EVERY DAY IN THE MORNING 90 tablet 5 025 Discontinued Active Problems Problem Noted Date Diagnosed Date Dyslipidemia 09/17/2020 Hypertension 04/19/2017 Essential hypertension Encounters Date Type Department Care Team Description 05/08/2024 7:02 AM CDT - 05/08/2024 11:59 PM CDT Hospital Encounter [facility] [address] [place] [address] Julián Bellamy, PA Discharge Disposition: Home or Self Care (Routine Discharge) 05/08/2024 Orders Only [facility] [address] [place] [address] Julián Bellamy PA 05/08/2024 Travel from Last 3 Months Immunizations Immunization Administration Dates Next Due MODERNA COVID-19 (12+) MRNA, LNP-S, PF, 100 MCG/ 0.5 ML DOSE 04/22/2020,03/25/2020 Family History Medical History Relation Comments Aneurysm Father Cancer Mother Relation Status Comments Brother (Age 64) Father (Age 83) Maternal Grandfather Maternal Grandmother Mother (Age 52) Paternal Grandfather Paternal Grandmother Social History Tobacco Use Types Packs/Day Years [...] Sex Assigned at Male 03/07/2024 7:51 AM DANCE HISTORIAN Legal Sex Male 1:55 AM CDT Gender Identity Male 03/15/2021 11:14 AM DANCE HISTORIAN Sexual Orientation Straight 03/15/2021 11 :14 AM DANCE HISTORIAN 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 Not on file Not on file Last Filed Vital Signs Vital Sign Reading Time Taken Comments Blood Pressure 132/86 03/28/2024 2:57 PM DANCE HISTORIAN Pulse 68 03/28/2024 2:54 PM DANCE HISTORIAN Temperature 36.7 C (98 F) 10/24/2018 10:55 AM CDT Respiratory Rate 12 03/28/2024 2:54 PM DANCE HISTORIAN Oxygen Saturation 98% 03/28/2024 2:54 PM DANCE HISTORIAN Inhaled Oxygen Concentration - - Weight 115.4 kg (254 lb 6.4 oz) 03/28/2024 2:54 PM DANCE HISTORIAN Height 177.8 cm (5' 10 ) 03/28/2024 2:54 PM DANCE HISTORIAN Body Mass Index 36.5 03/28/2024 2:54 PM DANCE HISTORIAN Plan of Treatment Upcoming Encounters Date Type Department Care Team (Late st Contact Info) Description 09/26/2024 2:30 PM CDT Office Visit [facility] [place] [address] Farheen Turcios, NATI [address] [id number] Health Maintenance Due Date Last Done Comments Colorectal Cancer Screening Colonoscopy (10 Years) 1965 Annual Physical 07/11/1966 Hepatitis C 07/11/1981 DTaP, Tdap and Td Vaccines ( 1 - Tdap) 07/11/1982 Pneumococcal Vaccine: 50+ Years (1 of 2 - PCV) 07/11/1982 Zoster Vaccines (1 of 2) 07/11/2013 RSV Immunization or 60+ Years (1 - Risk 60-74 years 1-dose series) 2023 COVID-19 Vaccine (3 - 2023-2 5 season) 2023 04/22/2020, 03/25/2020 Meningococcal B Vaccine Aged Out No l onger eligible based on patient's age to complete this topic Meningococcal Vaccine Aged Out No jojo mara eligible based on patient's age to complete this topic RSV Immunizations Under 20 Months Aged Out No longer eligible b ased on patient's age to complete this topic Medical Devices Implanted Type Area Financial Assistance Advisor Device Identifier Shelf Expiration Date Model / Serial / Lot Metallic Foreign Body Left: Chest Wall Description:Foreign body fou nd during MRI Abdomen 12/14/2023, patient had no knowledge about this foreign body, approximately 5cm left of xyphoid process in soft tissue. Procedures Procedure Name Priority Date/Time Associated Diagnosis Comments BLOOD SMEAR INTERPRETATION BY MD Routine 05/08/2024 7:06 AM CDT Iron overload Serum iron raised RETICULOCYTE CT, AUTO Routine 05/08/2024 7:06 AM CDT Iron overload Serum iron raised FERRITIN Routine 05/08/2024 7:06 AM CDT Iron overload Serum iron raised IRON SAT PANEL (IRON,IBC,%SAT) Routine 05/08/2024 7:06 AM CDT Iron overload Serum iron raised CBC W/DIFF AUTOMATED Routine 05/08/2024 7:06 AM CDT Iron overload Serum iron raised PATHOLOGY Routine 05/08/2024 12:00 AM CDT from Last 3 Months Results * IRON SAT PANEL (IRON,IBC,%SAT) (05/08/2024 7:06 AM CDT) IRON 155 65.0 - 175.0 MCG/DL 05/08/2024 11:27 AM CDT [facility] IRON BINDING CAPACITY 294 250 - 450 MCG/DL 05/08/2024 11:27 AM CDT [facility] IRON SATURATION 53 20 - 55 % 11:27 AM CDT [facility] 05/08/2024 7:06 AM CDT [facility] Travis KolbSharla PA LABORATORY Final Resu lt [facility] [address] [place] [address], [place] [phone] * RETICULOCYTE CT, AUTO (05/08/2024 7:06 AM CDT) RETICULOCYTE COUNT 2.0 0.4 - 3.8 % 05/08/2024 7:35 AM CDT [facility] ABSOLUTE RETICULOCYTE 0.09 0.02 - 0.13 x10'6/uL 05/08/2024 7:35 AM CDT [facility] IMMATURE RETIC FRACTION 12.5 2.3 - 13.4 % 05/08/2024 7:35 AM CDT [facility] RETIC HGB 35.2 28.2 - 36.6 PG 05/08/2024 7:35 AM CDT [facility] 05/08/2024 7:06 AM CDT Julián Bellamy PA LABORATORY Final Resu lt Performing Organization Address [facility]/ZIP Co de Phone Number [facility] [address] [place] [address], * BLOOD SMEAR PERIPHERAL INTERP PHYS W/WRIT REPORT (05/08/2024 7:06 AM CDT) SMEAR TO PATHOLOGIST SEE PATHOLOGY REPORT. 05/10/2024 10:27 AM CDT [facility] 05/08/2024 7:06 AM CDT [facility] B Sharla PA LABORATORY Final Resu lt [facility] [address] [place] [address], * (ABNORMAL) CBC W/DIFF AUTOMATED (05/08/2024 7:06 AM CDT) [facility] WBC 5.38 4.50 - 11.00 x10'3/uL 05/08/2024 7:35 AM CDT [facility] RBC 4.58 4.50 - 5.90 x10'6/uL 05/08/2024 7:35 AM CDT [facility] HGB 14.6 14.0 - 18.0 G/DL 05/08/2024 7:35 AM CDT [facility] HCT 41.3(L) 43.0 - 54.0 % 05/08/2024 7:35 AM CDT [facility] MCV 90.2 80.0 - 100.0 FL 05/08/2024 7:35 AM CDT [facility] MCH 31.9 26.0 - 34.0 PG 05/08/2024 7:35 AM CDT [facility] MCHC 35.4 31.0 - 37.0 G/DL 05/08/2024 7:35 AM CDT [facility] RDW 12.6 11.6 - 14.8 % 05/08/2024 7:35 AM CDT [facility] PLT 225 130 - 400 x10'3/uL 05/08/2024 7:35 AM CDT [facility] MPV 9.1 7.0 - 12.0 FL 05/08/2024 7:35 AM CDT [facility] CBC COMMENT AUTOMATED RBC MORPHOLOGY AND PLATELET EVALUATION NORMAL 05/08/2024 7:35 AM CDT [facility] NEUTROPHILS % 47.8 40.0 - 74.0 % 05/08/2024 7:36 AM CDT [facility] LYMPHOCYTES % 36.2 14.0 - 46.0 % 05/08/2024 7:36 AM CDT [facility] MONOCYTES % 9.9 4.0 - 13.0 % 05/08/2024 7:36 AM CDT [facility] EOSINOPHILS 5.2 0.0 - 7.0 % 05/08/2024 7:36 AM CDT [facility] BASOPHILS 0.7 0.0 - 3.0 % 05/08/2024 7:36 AM CDT [facility] IMMATURE GRANS % 0.2 0.0 - 0.43 % 05/08/2024 7:36 AM CDT [facility] NRBC % 0.0 % 05/08/2024 7:36 AM CDT [facility] ABS. NEUTROPHILS TOTAL 2.57 1.69 - 7.81 x10'3/uL 05/08/2024 7:36 AM CDT [facility] ABS. LYMPHOCYTES 1.95 0.21 - 5.42 x10'3/uL 05/08/2024 7:36 AM CDT [facility] ABS. MONOCYTES 0.53 0.04 - 1.37 x10'3/uL 05/08/2024 7:36 AM CDT [facility] ABS. EOSINOPHILS 0.28 0.00 - 0.68 x10'3/uL 05/08/2024 7:36 AM CDT [facility] ABS. BASOPHILS 0.04 0.00 - 0.08 x10'3/uL 05/08/2024 7:36 AM CDT [facility] ABS. IMMATURE GRANULOCYTES 0.01 0.00 - 0.06 x10'3/uL 05/08/2024 7:36 AM CDT [facility] ABS. NUCLEATED RBC'S 0.00 0.00 - 0.01 x10'3/uL 05/08/2024 7:36 AM CDT [facility] 05/08/2024 7:06 AM CDT Julián EPPERSON LABORATORY [facility] [place] [facility] [address] [place] [address], * FERRITIN (05/08/2024 7:06 AM CDT) FERRITIN 93.6 8.0 - 388.0 NG/ML 05/08/2024 11:27 AM CDT [facility] 05/08/2024 7:06 AM CDT us Julián EPPERSON LABORATORY Final Resu lt [facility] [address] [place] [address], * Pathology (05/08/2024 12:00 AM CDT) PATHOLOGY [facility] Department of Laboratory Medicine [address] [place] [address] , extension [phone] Pathology Report Peripheral Smear Report Name: KRISH AWAD Specimen #: [id number] Age: 5 1965 (Age: 58) Location: [facility] Sex: M Procedure Date: 05/08/2024 [facility] #: [id number] Date Received: 05/08/2024 Date Reported: 05/09/2024 Provider: JULIÁN BELLAMY Source: Peripheral blood Clinical History: Abnormal serum iron levels FINAL DIAGNOSIS: Peripheral blood, smear review: -Decreased hematocrit. -Otherwise, no significant morphologic or quantitative abnormalities. Electronically Signed Out Yuliya Bedolla M.D. INTERPRETATION: Peripheral Blood Comments: Red Blood Cells: The hemoglobin is within normal range. The hematocrit is decreased to 41.3%. The red blood cells are generally normocytic and normochromic without significant anisopoikilocyto sis. White Blood Cells: The total white blood cell count and individual leukocyte fractions are within normal range. No significant morphologic abnormalities. No blasts identified. Platelets: The platelet count is within normal range with no significant morphologic abnormalities. Interpretation and sign out were performed at [facility], [address] [facility], [place] [address]. [facility] 05/08/2024 05/08/2024 12: 30 PM CDT Comment:Peripheral blood us Julián EPPERSON PATHOLOGY/CYTOLOGY ORDERAB LES Final Result [facility] [address] [place] [address], [place] [phone] from Last 3 Months Insurance Care Teams Powder Coat Painter Relationship Specialty Start Date End Date Trena Cardona MD [address] [place] [address] PCP - General FAMILY PRACTICE 09/30/21 Zaki Choudhary MD [facility]. [facility] [address] [place] [address] [employer] Staff Member CARDIOVASCULAR DISEASE 04/12/19
--- OUTSIDE RECORDS SUMMARY | 2024-06-27 01:07 | XMS_ITS | Referral Summary ---
Author Organization [facility] [address] Address [address] [place] [address] Care Team Providers Care Developer Designer Name Role Phone Mitchell Keane MD Primary Care Provider [phone] Allergies No known active allergies Medications telmisartan [...] Active Active Problems No known active problems Social History Tobacco Use Types Packs/Day Years Used Date Smoking Tobacco: Never Smokeless Tobacco: Never Alcohol Use Standard Drinks/Week Comments No 0 (1 standard drink = 0.6 oz pur e alcohol) Sex and Gender Information Value Date Recorded Sex Assigned at Not on file Legal Sex Male 2:04 PM CDT Gender Identity Not on file Sexual Orientation Not on file Last Filed Vital Signs Vital Sign Reading Time Taken Comments Blood Pressure 126/78 01/09/2019 1:11 PM [employer]RE BU[employer] Pulse 83 01/09/2019 1:11 PM [employer] BU[employer] Temperature - - Respiratory Rate - - Oxygen Saturation 97% 01/09/2019 1:11 PM [employer]RE BU[employer]ER Inhaled Oxygen Concentration - - Weight 109.3 kg (241 lb) 01/09/2019 1:11 PM ORE BU[employer]ER Height 179.1 cm (5' 10.5 ) 01/09/2019 1:11 PM CS T Body Mass Index 34.09 01/09/2019 1:11 PM ORE BUYER Plan of Treatment Not on file Insurance [facility] Care Teams Developer Designer Relationship Specialty Start Date End Date Mitchell Keane MD [address] [place] [id number] PCP - General 05/20/16
--- OUTSIDE RECORDS SUMMARY | 2024-06-27 01:07 | XMS_ITS | Encounter Summary ---
Author Organization [facility] Address [address] [place] [address] Care Team Providers Care Grinder Set Up Operator Name Role Phone Mitchell Keane MD Primary Care Provider [phone] Encounter Details Date Type Department Care Team (Late st Contact Info) Description 05/23/2016 Orders Only [facility] ProviderBrandon MD [address] [place] [id number] Social History Tobacco Use Types Packs/Day Years Used Date Smoking Tobacco: Never Assessed Sex and Gender Information Value Date Recorded Sex Assigned at Not on file Legal Sex Male 2:04 PM CDT Gender Identity Not on file Sexual Orientation Not on file documented as of this encounter Plan of Treatment Not on file documented as of this encounter Procedures Procedure Name Priority Date/Time Associated Diagnosis Comments CARDIOLOGY REPORT 05/23/2016 CARDIOLOGY REPORT 05/23/2016 documented in this encounter Results * CARDIOLOGY REPORT (05/23/2016) Anatomical Region Laterality Modality Other Narrative 05/23/2016 Ordered by an unspecified provider. Historical Provider [facility] PROCE DURES Final Result * CARDIOLOGY REPORT (05/23/2016) Anatomical Region Laterality Modality Other Narrative 05/23/2016 Ordered by an unspecified provider. Historical Provider [facility] CARDIAC SERVICES PROCE DURES Final Result documented in this encounter Visit Diagnoses Not on filedocumented in this encounter Care Teams Grinder Set Up Operator Relationship Specialty Start Date End Date Mitchell Keane MD [address] [place] [id number] PCP - General 05/20/16 documented as of this encounter
[2024-06-27 11:09] VITALS: BP 144/129; PULSE 82; RESP 20; TEMP 36.1; O2SAT 98
--- NOTE | 2024-06-27 11:25 | P.PNAN_ITS ---
Anes - Initial Pre Proc Eval Procedure: Operation Date: 06/27/24 12:30 Proposed Procedures p Colonoscopy - Thomas Ewing MD Date/Time: 06/27/24 11:25 Surgeon: Thomas Ewing MD Pre Op Diagnosis: Slow transit constipation,abdominal pain Patient Data Age: 58 Gender: M Height: 1.8 m Weight: 110.6 kg Last Vital Signs Temp 97 F L 06/27/24 11:09 Pulse 82 06/27/24 11:09 Resp 20 06/27/24 11:09 BP 144/129 H 06/27/24 11:09 Pulse Ox 98 06/27/24 11:09 O2 Del Method Room Air 06/27/24 11:09 Allergies Allergy/AdvReac Type Severity Reaction Status Date / Time amlodipine AdvReac Flushing Verified 06/27/24 11:08 Home Medications ?Medication ?Instructions ?Recorded ?Confirmed ?Type telmisartan 40 1 tablet PO DAILY 05/28/19 06/27/24 History mg-hydrochlorothiazide 12.5 mg tablet multivitamin (Daily Multi-Vitamin 1 tablet PO DAILY 06/12/24 06/27/24 History tablet) naproxen 500 mg tablet 500 mg PO BID 06/12/24 06/27/24 History Patient hx anesthesia problems: none Family hx anesthesia problems: none Results Review: All pre-operative results and documents have been reviewed as part of the pre- operative evaluation. [facility] Past Medical History Medical History Anxiety Dyslipidemia Diastolic dysfunction CORY (obstructive sleep apnea) Family History Family History Mother Family history of malignant neoplasm of breast in first degree relative, Onset Age: 50 Father , aneurysm Aneurysm Mother Breast cancer Social History Social History Smoking status: Never smoker Alcohol intake: never Substance use: never Substance use type: does not use Living arrangements: with family Spiritual care concerns: No Anes - Eval Final PreProcedure Day of Procedure 06/27/24 11:25 Patient weight: obese Lungs: normal air movement Airway: Mallampati scale class II Neurological: alert and oriented Last oral intake: >/= 8 hours ASA classification: III Emergent: no Anesthetic plan: proceed Anesthesia type and monitoring: general GIVS and standard monitoring Results Review: All pre-operative results and documents have been reviewed as part of the pre- operative evaluation. CORY on CPAP, mild settings, HTN, active as a store administrator, no cp or sob. Informed Consent: The patient's anesthetic plan and its attendant risks and benefits were discussed with the patient/family/POA. Questions were solicited and answers provided to the satisfaction of the patient/family/POA.
[2024-06-27] MEDS: LACTATED RINGERS 1,000 ML 150 ML IV CONT (11:29)
--- NOTE | 2024-06-27 11:31 | SUR.PREOP ---
Patient reports eating Cheeseburger and fries at noon yesterday, Dr. Flores and Dr. Solano both made aware and okay to proceed with procedure.
--- NOTE | 2024-06-27 12:36 | PM.HPGS ---
History of Present Illness History of Present Illness Consent: Risks, benefits, and alternatives have been discussed and questions answered. Patient agrees to proceed with procedure. Chief complaint: Slow transit constipation,abdominal pain Narrative: Joe Lee Jr. is a 58 year old male with constipation and abdominal distension, last colonoscopy 2020. Recent imaging of small bowel with possible thickening Review of Systems Review of Systems: All systems reviewed & are unremarkable except as noted in HPI and below PMFSH Past Medical History Medical History Anxiety Dyslipidemia Diastolic dysfunction CORY (obstructive sleep apnea) Family History Family History Mother Family history of malignant neoplasm of breast in first degree relative, Onset Age: 50 Father , aneurysm Aneurysm Mother Breast cancer Social History Social History Smoking status: Never smoker Alcohol intake: never Substance use: never Substance use type: does not use Living arrangements: with family Spiritual care concerns: No Meds Home Medications and Allergies Home Medications ?Medication ?Instructions ?Recorded ?Confirmed ?Type telmisartan 40 1 tablet PO DAILY 05/28/19 06/27/24 History mg-hydrochlorothiazide 12.5 mg tablet multivitamin (Daily Multi-Vitamin 1 tablet PO DAILY 06/12/24 06/27/24 History tablet) naproxen 500 mg tablet 500 mg PO BID 06/12/24 06/27/24 History Allergies Allergy/AdvReac Type Severity Reaction Status Date / Time amlodipine AdvReac Flushing Verified 06/27/24 11:08 Vital Signs Vital Signs - 24 hr 06/27/24 11:09 Temperature 97 F L Pulse Rate 82 Respiratory Rate 20 Blood Pressure 144/129 H Pulse Oximetry 98 Oxygen Delivery Room Air Exam Const: General: comfortable and no acute distress HENMT: Face/Nose/Sinus: Normal nares present Eyes: General: appearance normal, both eyes and all related structures Neck: Neck: no JVD Resp: Auscultation: clear to auscultation bilaterally Cardio: Rate: regular rate Rhythm: regular rhythm GI: Inspection: non-distended GI Palp: Yes Soft to palpation Skin: General skin exam: normal color Neuro: General: gait normal Speech: normal speech Extrem: General: normal to inspection Psych: Mental Status: mental status grossly normal Assessment and Plan Assessment and plan (1) Constipation, slow transit: Code(s): K59.01 - Slow transit constipation Status: Acute Assessment and Plan: colonoscopy
[2024-06-27 12:52] VITALS: BP 130/83; PULSE 83; RESP 18; O2SAT 97
[2024-06-27 13:02] VITALS: BP 133/77; PULSE 76; RESP 18; O2SAT 100
[2024-06-27 13:12] VITALS: BP 120/89; PULSE 77; RESP 15; O2SAT 99
== END 2024-06-27 13:24 | disposition home or self-care (01) ==
PROVIDERS: PCP Family Medicine; Referring Provider Nurse Practitioner; Visit Provider Internal Medicine Gastroenterology
PROC: 0DJD8ZZ Inspection of Lower Intestinal Tract, Via Natural or Artificial Opening Endoscopic (ICD-10-PCS; CPT 45378; principal; 2024-06-27 12:30)
DX: R93.3 Abnormal findings on diagnostic imaging of other parts of digestive tract (principal); K64.8 Other hemorrhoids; K57.30 Diverticulosis of large intestine without perforation or abscess without bleeding; E78.5 Hyperlipidemia, unspecified; F41.9 Anxiety disorder, unspecified; I11.0 Hypertensive heart disease with heart failure; I50.30 Unspecified diastolic (congestive) heart failure; G47.33 Obstructive sleep apnea (adult) (pediatric); E66.9 Obesity, unspecified; Z68.34 Body mass index [BMI] 34.0-34.9, adult; Z99.89 Dependence on other enabling machines and devices; Z79.1 Long term (current) use of non-steroidal anti-inflammatories (NSAID); Z80.3 Family history of malignant neoplasm of breast
CPT/HCPCS: 45378; J2003; J2704; J7120

== ENCOUNTER 2024-08-30 12:18 | Outpatient (CLI) | payer BC, SELFPAY ==
--- NOTE | ~2024-08-30 | MR_ITS ---
MRI of the cervical spine Clinical History: Spinal stenosis Technique: Axial T2-weighted and gradient images, and sagittal T1-weighted, T2-weighted, and STIR deisy ges were acquired. Findings: There is no fracture or subluxation of the cervical spine. Vertebral bodies maintain normal height and alignment. No bone marrow signal abnormality seen. At C2-C3, there is minimal disc osteophyte complex. There is mild bilateral facet arthropathy. No spi nal canal stenosis, cord compression, or definite neural foraminal narrowing. At C3-C4, there is disc osteophyte complex with mild canal stenosis but no horacio cord compression. Th ere is advanced bilateral neural foraminal narrowing, right worse than left. There is right facet art hropathy. At C4-C5, there is disc osteophyte complex with mild canal stenosis and possible minimal flattening t he ventral cord. There is bilateral neural foraminal narrowing, left worse than right. At C5-C6, there is disc osteophyte complex. There is mild canal stenosis without horacio cord compressi on. There is advanced bilateral neural foraminal narrowing. At C6-C7, there is degenerative disc narrowing without significant disc bulge or herniation. There is bilateral facet arthropathy. There is bilateral neural foraminal narrowing, right worse than left. N o canal stenosis or cord compression. No abnormal signal seen in the spinal cord. Paravertebral soft tissues are unremarkable. Impression: Moderate to advanced degenerative spondylosis of the cervical spine. Please see details above. Reviewed, dictated and finalized at [facility]. Impression: Moderate to advanced degenerative spondylosis of the cervical spine. Please see details above.
== END 2024-08-30 12:19 | disposition home or self-care (01) ==
LOC: MICIMG 12:19
PROVIDERS: PCP Family Medicine; Visit Provider Family Medicine
DX: M48.02 Spinal stenosis, cervical region (principal); M47.892 Other spondylosis, cervical region
CPT/HCPCS: 72141